=== PATIENT | male | born 1990 | race African-American/Black ===

== ENCOUNTER 2021-09-02 20:29 | Emergency (ER) | payer SELFPAY ==
[~2021-09-02] VITALS: Ht 175.3 cm; Wt 100.0 kg
[2021-09-02 20:36] VITALS: BP 130/72
== END 2021-09-03 02:35 | disposition left against medical advice (07) ==
LOC: ER 20:29
DX: R07.89 Other chest pain (principal); Z53.21 Procedure and treatment not carried out due to patient leaving prior to being seen by health care provider